=== PATIENT | female | born 1985 | race African-American/Black ===

== ENCOUNTER 2017-10-16 15:11 | Emergency (ER) | payer OTHER | END 2017-10-16 15:43 | disposition home or self-care (01) | LOC: ER 15:43 | DX: J06.9 Acute upper respiratory infection, unspecified (principal) | CPT/HCPCS: 99283 ==

== ENCOUNTER 2017-11-30 17:43 | Emergency (ER) | payer OTHER ==
[2017-11-30 18:11] LABS: ADD MAN DIFF? NO
[2017-11-30 18:15] LABS: BASO # 0.1 x10^3/uL (0.0-0.2); BASO % 1 % (0-3); EOS # 0.2 x10^3/uL (0.0-0.7); EOS % 3 % (0-3); HEMATOCRIT 36.1 % (36.0-47.0); HEMOGLOBIN 11.8 g/dL (12.0-15.5); LYMPH # 2.6 x10^3/uL (1.0-4.8); LYMPH % 35 % (24-48); MEAN CORPUSCULAR HEMOGLOBIN 23 pg (25-35); MEAN CORPUSCULAR HGB CONC 33 g/dL (31-37); MEAN CORPUSCULAR VOLUME 71 fL (79-100); MONO # 0.6 x10^3/uL (0.0-1.1); MONO % 8 % (0-9); NEUT # 3.9 x10^3uL (1.8-7.7); NEUT % 53 % (31-73); PLATELET COUNT 323 x10^3/uL (140-400); RED BLOOD COUNT 5.07 x10^6/uL (3.50-5.40); RED CELL DISTRIBUTION WIDTH 14.9 % (11.5-14.5); WHITE BLOOD COUNT 7.4 x10^3/uL (4.0-11.0)
[2017-11-30 18:22] LABS: ANION GAP 7 (6-14); BLOOD UREA NITROGEN 9 mg/dL (7-20); CALCIUM 9.3 mg/dL (8.5-10.1); CARBON DIOXIDE 28 mmol/L (21-32); CHLORIDE 106 mmol/L (98-107); CREATININE 0.9 mg/dL (0.6-1.0); GFR 88.4; GLUCOSE 92 mg/dL (70-99); POTASSIUM 4.2 mmol/L (3.5-5.1); SODIUM 141 mmol/L (136-145)
[2017-11-30 18:35] LABS: TROPONINI < 0.017 ng/mL (0.000-0.055)
[2017-11-30 18:52] LABS: D-DIMER 0.27 ug/mlFEU (0.00-0.50)
[2017-11-30 20:15] LABS: MICROCYTOSIS SLIGHT; OVALOCYTES OCC; PLT ESTIMATE INCREASED (ADEQUATE)
== END 2017-11-30 19:42 | disposition home or self-care (01) ==
LOC: ER 17:43
DX: R07.89 Other chest pain (principal); M54.9 Dorsalgia, unspecified; F32.9 Major depressive disorder, single episode, unspecified; Z90.49 Acquired absence of other specified parts of digestive tract
CPT/HCPCS: 36415; 71045; 80048; 84484; 85025; 85379; 93005; 99285-25

== ENCOUNTER 2018-01-08 17:48 | Emergency (ER) | payer OTHER ==
[2018-01-08 18:26] LABS: URINE HCG POC HCG NEGATIVE (Negative)
[2018-01-08 18:35] LABS: BILIRUBIN,URINE NEGATIVE (NEG); CLARITY,URINE CLEAR; COLOR,URINE YELLOW; GLUCOSE,URINE NEGATIVE (NEG); NITRITE,URINE NEGATIVE (NEG); PH,URINE 5.5; PROTEIN,URINE NEGATIVE (NEG-TRACE); UROBILINOGEN,URINE 0.2 mg/dL (0.2 mg/dL)
[2018-01-08 19:04] LABS: BACTERIA,URINE 0 /HPF (0-FEW); RBC,URINE 20-40 /HPF (0-2); SQUAMOUS EPITHELIAL CELL,UR MOD /LPF
== END 2018-01-08 19:46 | disposition home or self-care (01) ==
LOC: ER 17:48
DX: N39.0 Urinary tract infection, site not specified (principal); Z90.49 Acquired absence of other specified parts of digestive tract; Z98.890 Other specified postprocedural states
CPT/HCPCS: 81001; 81025; 87491; 87591; 99284

== ENCOUNTER 2018-01-12 01:47 | Emergency (ER) | payer OTHER ==
[2018-01-12] MEDS ORDERED: NAPROXEN 500 MG TABLET PO (03:00)
== END 2018-01-12 02:50 | disposition home or self-care (01) ==
LOC: ER 01:47
DX: K08.89 Other specified disorders of teeth and supporting structures (principal)
CPT/HCPCS: 99283

== ENCOUNTER 2019-11-26 19:56 | Emergency (ER) | payer OTHER ==
[~2019-11-26] VITALS: Ht 172.7 cm; Wt 108.0 kg
[~2019-11-26 19:56] MED LIST: ALBU2.5V8 INH; BENZ100C PO; DOCU-109 PO; DOXY-96 PO; NA P133E6 RC; NAPR-683 PO; OMEP20CA16 PO; OXYC1TAB15 PO; SULF1TAB24 PO
[2019-11-26 20:53] VITALS: BP 160/98
[2019-11-26] MEDS ORDERED: GABA300C18 PO (21:15)
[2019-11-26] MEDS ORDERED: DICL50TA2 PO (21:15)
[2019-11-26] MEDS ORDERED: METH4TAB2 PO (21:15)
--- NOTE | 2019-11-26 21:15 | PHYS DOC ---
Past Medical History Past Medical History: Constipation, Depression, Other Additional Past Medical Histor: CELIAC DISEASE Past Surgical History: Appendectomy, Cholecystectomy, Other Additional Past Surgical Histo: HERNIA REPAIR Smoking Status: Current Every Day Smoker Alcohol Use: Occasionally Drug Use: None Adult General Chief Complaint Chief Complaint: FOOT INJURY PAIN [facility] HPI Patient is a 34 year old female with a history of constipation, depression, who presents to the ED today complaining of moderate intermittent bilateral feet pain worse on the arc of the left foot pain radiating to the left upper extremity, symptoms have been going on for a while. Patient reports symptoms got worse today specially with weightbearing. Describes the pain as sharp. Denies anything specifically alleviating the pain. Requesting pain medicine Review of Systems Review of Systems Constitutional: Denies fever or chills [] Eyes: Denies change in visual acuity, redness, or eye pain [] HENT: Denies nasal congestion or sore throat [] Respiratory: Denies cough or shortness of breath [] Cardiovascular: No additional information not addressed in HPI [] GI: Denies abdominal pain, nausea, vomiting, bloody stools or diarrhea [] : Denies dysuria or hematuria [] Musculoskeletal: Reports bilateral feet pain Integument: Denies rash or skin lesions [] Neurologic: Denies headache, focal weakness or sensory changes [] All other systems were reviewed and found to be within normal limits, except as documented in this note. Allergies Allergies Allergies Coded Allergies Type Severity Reaction Last Updated Verified No Known Drug Allergies 09/28/17 No Physical Exam Physical Exam Constitutional: Well developed, well nourished, no acute distress, non-toxic appearance. [] HENT: Normocephalic, atraumatic, bilateral external ears normal, oropharynx moist, no oral exudates, nose normal. [] Eyes: PERRLA, EOMI, conjunctiva normal, no discharge. [] Neck: Normal range of motion, no tenderness, supple, no stridor. [] Cardiovascular:Heart rate regular rhythm, no murmur [] Lungs & Thorax: Bilateral breath sounds clear to auscultation [] Abdomen: Bowel sounds normal, soft, no tenderness, no masses, no pulsatile masses. [] Skin: Warm, dry, no erythema, no rash. [] Back: No tenderness, no CVA tenderness. [] Extremities: Bilateral feet with no obvious deformity. Pain elicited on the left of the foot on exam. No support on her shoes noted. Patient likely has plantar fasciitis. Range of motion intact bilateral lower extremities. +2 bilateral pedal pulses. Neurologic: Alert and oriented X 3, normal motor function, normal sensory function, no focal deficits noted. [] Psychologic: Affect normal, judgement normal, mood normal. [] EKG EKG [] Radiology/Procedures Radiology/Procedures [] Course & Med Decision Making Course & Med Decision Making Pertinent Labs and Imaging studies reviewed. (See chart for details) This is a 34-year-old female patient presenting to the ED today with bilateral feet pain consistent of plantar fasciitis. We talked about getting insoles/shoes with good support. Discharged with gabapentin, Medrol Dosepak and Diclofenac. Provided j2ee software engineer to follow-up with. Miguelina Disclaimer Miguelina Disclaimer This electronic medical record was generated, in whole or in part, using a voice recognition dictation system. Departure Departure Impression: Primary Impression: Plantar fasciitis of left foot Additional Impression: Plantar fasciitis of right foot Disposition: 01 HOME, SELF-CARE Condition: STABLE Referrals: PRISCA CALL MD (PCP) Follow up in 1-2 weeks Patient Instructions: Plantar Fasciitis Additional Instructions: Please consider getting insoles for your shoes as discussed. Try to ice and elevate your extremities. Take the prescribed medications as ordered. Follow- up with your j2ee software engineer or the provided j2ee software engineer in 1 to 2 weeks. Please follow-up with your own primary care doctor for blood pressure. Scripts Gabapentin (GABAPENTIN ) 300 Mg Capsule 300 MG PO TID, #30 CAP Prov: JULIA GILBERT APRN 11/26/19 Diclofenac Potassium (DICLOFENAC POTASSIUM) 50 Mg Tablet 1 TAB PO BID, #20 TAB Prov: JULIA GILBERT APRN 11/26/19 Methylprednisolone (MEDROL) 4 Mg Tab.ds.pk 1 PKG PO UD, #1 PKG Prov: JULIA GILBERT APRN 11/26/19 Problem Qualifiers JULIA GILBERT APRN Nov 26, 2019 21:15
== END 2019-11-26 21:35 | disposition home or self-care (01) ==
LOC: ER 19:56
DX: M72.2 Plantar fascial fibromatosis (principal); F17.200 Nicotine dependence, unspecified, uncomplicated
CPT/HCPCS: 99283